=== PATIENT | female | born 2000 | race Caucasian/White ===

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

== ENCOUNTER 2020-02-24 15:02 | Emergency (ER) | payer OTHER, SELFPAY ==
[2020-02-24] VITALS (19 sets, daily range): BP systolic 76–121; BP diastolic 47–82; PULSE 51–102; RESP 4–24; TEMP 36.7–36.9; O2SAT 94–100
[2020-02-24] MEDS: Dexamethasone 10 MG/ML VIAL PO (15:14)
--- NOTE | 2020-02-24 15:16 | ED.GENADUL_ITS ---
Discharge Plan Disposition Patient Disposition: HOME Condition: Stable Discharge Details Chief Complaint: SOB Clinical Impression: Back pain, Asthma exacerbation, Cough Primary Care Provider: Shaw Moran ED Provider: Steven Drummond Home Meds and New Rx's Prescriptions: New prednisone 20 mg tablet 60 mg PO DAILY 5 Days Qty: 15 RF: 0 No Action (DME) Aerovent Plus spacer See Dose Instructions .ROUTE .MEDSUPPLY Qty: 1 RF: 1 Flovent HFA 110 mcg/actuation HFA aerosol inhaler 2 puff IH BID RF: 0 levonorgestrel-ethinyl estrad [Aubra] 0.1-20 mg-mcg tablet 1 tab PO DAILY Qty: 28 RF: 1 albuterol sulfate 90 mcg/actuation HFA aerosol inhaler 2 puff IH Q4H PRN (Reason: shortness of breath or wheezing) Qty: 18 RF: 1 lorazepam 0.5 MG tablet 0.5 mg PO Q6H PRN Qty: 6 RF: 0 ibuprofen [IBU-200] 200 mg Tablet 600 mg PO QID PRNRF: 0 Discharge Instructions Instructions: Asthma (ED), Back Pain (ED), Acute Cough (ED) Additional Instructions: Continue taking your At Home medications as directed and add on prednisone as directed. I have set you up for COVID testing on Wednesday, they will be contacting you for an exact time. Please watch for new or worsening symptoms and return to the ER for any concerns. I do recommend reaching out to your primary care provider on Wednesday for prompt outpatient reevaluation Stand Alone Forms: POSITIVE COVID-19/TO BE TESTED Discharge Data Discharge Date/Time-TO BE ENTERED AT DEPARTURE: 02/24/20 17:17 Medical Decision Making <Alyce Miller - Last Filed: 02/25/20 08:43> 19-year-old female with a history of asthma and anxiety presents with increased shortness of breath x3 days. Per EMS initial presentation patient was satting 90% on room air. Patient received 1 DuoNeb by EMS prior to arrival and 1 puff of her out handheld albuterol inhaler. Per EMS patient was very wheezy bi laterally prior to neb. Upon arrival she has improved somewhat. She does still have some upper airway wheezes. She is satting 99% on room air. She denies fever, chills. She also fell down 5 stairs this morning slip and fall no LOC did not hit her head landed on her back. 1 more DuoNeb ordered, 10 mg of dexamethasone p.o., chest x-ray lumbar spine x- ray ordered. Patient continues to sat 98% on room air. Patient walked to the bathroom to provide a urine sample with minimal assistance. Care is to be handed off to oncoming provider APOLINAR Luis pending patient's labs, x-ray results and reevaluation. At this time expected disposition is discharge home pending improvement in asthma exacerbation. <APOLINAR Devi - Last Filed: 02/24/20 17:07> I assumed care of the patient at shift change pending laboratory values, chest x-ray, lumbar spine x-ray, reevaluation. Upon evaluation patient is resting comfortably, speaking in full sentences and reports feeling significantly improved when compared to her initial presentation. She denies any wheezing. She reports a 3-day history of increasing shortness of breath, wheezing, similar to previous asthma exacerbations. On exam she appears well, nontoxic, lungs are clear to auscultation. Heart rate in the 60s. Without pedal edema, calf pain or swelling. O2 sats in the high 90s on room air. Laboratory values are unremarkable. Both lumbar spine and chest x-ray read by virtual radiology as negative. Discussed options with patient. Will provide a burst dose of steroids and I will set her up for COVID testing on Wednesday through our tent system. Upon discharge patient appears well, nontoxic, speaking full sentences, ambulates without difficulty. O2 sats remained in the high 90s on room air. HPI <Alyce Miller - Last Filed: 02/25/20 08:43> General Mode of arrival: EMS . Date/Time Provider Initiated Documentation: 02/24/20 15:04 . Limitations to Documentation: no limitations . Information obtained by: patient and EMS . HPI Narrative: 19-year-old female with a history of asthma and anxiety presents with increased shortness of breath x3 days. Patient received 1 DuoNeb by EMS prior to arrival and 1 puff of her out handheld albuterol inhaler. Per EMS patient was very wheezy bilaterally prior to neb. Upon arrival she has improved somewhat. She does still have some upper airway wheezes. She is satting 99% on room air. She denies fever, chills. She also fell down 5 stairs this morning slip and fall no LOC did not hit her head landed on her back. Related Data Home Medications Medication Instructions Recorded Confirmed lorazepam 0.5 mg PO Q6H PRN #6 tab 08/31/17 02/24/20 inhalational spacing device #1 each 07/14/18 10/12/19 ibuprofen [IBU-200] 600 mg PO QID PRN 10/21/18 02/24/20 fluticasone propionate 110 2 puff IH BID gm 06/05/19 02/24/20 mcg/actuation HFA aerosol inhaler albuterol sulfate 90 mcg/actuation 2 puff IH Q4H PRN #18 gm 10/12/19 02/24/20 aerosol inhaler levonorgestrel-ethinyl estradiol 1 tab PO DAILY #28 tab 10/12/19 02/24/20 0.1 mg-20 mcg tablet prednisone 60 mg PO DAILY 5 Days #15 tab 02/24/20 Previous Rx's Medication Instructions Recorded lorazepam 0.5 mg PO Q6H PRN #6 tab 08/31/17 inhalational spacing device #1 each 07/14/18 albuterol sulfate 90 mcg/actuation 2 puff IH Q4H PRN #18 gm 10/12/19 aerosol inhaler levonorgestrel-ethinyl estradiol 1 tab PO DAILY #28 tab 10/12/19 0.1 mg-20 mcg tablet prednisone 60 mg PO DAILY 5 Days #15 tab 02/24/20 Allergies Allergy/AdvReac Type Severity Reaction Status Date / Time No Known Drug Allergies Allergy Verified 02/24/20 15:03 dustmites Allergy Uncoded 02/24/20 15:03 General Stated Complaint: SOB KEVIN: 2 Review of Systems <Alyce Miller - Last Filed: 02/25/20 08:43> Narrative: Constitutional: Negative for weight loss, alert and oriented, well groomed, normal body habitus, appears anxious HEENT: Denies headaches, blurry vision, nasal discharge, sore throat, trouble s wallowing. Chest: Denies chest pain, palpitations, irregular rhythm, hypertension. Respiratory: Denies hemoptysis. Positive shortness of breath, cough. GI: Denies , nausea, vomiting, diarrhea, constipation. : Denies dysuria, hematuria, rectal bleeding. Musculoskeletal: Reports some right-sided paraspinous tenderness with palpation. Neuro: Denies dizziness, blurry vision, weakness, syncope, headache or facial numbness. Hematologic: Denies easy bruising, intolerance to heat or cold, hair loss. PFSH <Alyce Miller - Last Filed: 02/25/20 08:43> Medical History Asthma GERD (gastroesophageal reflux disease) Panic attack Surgical History [place] teeth extracted (Acute) [place] teeth removed (Acute) Family History Mother Essential hypertension Hyperlipidemia Neoplasm Father Essential hypertension Hyperlipidemia Other Substance abuse Mental disorder Neoplasm Asthma Grandparent Substance abuse Essential hypertension Hyperlipidemia Bleeding disorder Other Gastric ulcer Social History Smoking/Tobacco Use Status: Never Alcohol Intake: never Drug use: Never Substance use type: does not use Adopted: No Caregiver/Support person: No Foster care: No Household members: family Education Level: college Details: Freshman at [employer] Pets and animals: No Fire extinguisher in home: Yes Carbon monox detector in home: Yes Do you feel safe at home: Yes Do you feel safe in your relationship?: Yes Exam <Alyce Miller - Last Filed: 02/25/20 08:43> Narrative Exam Narrative: Constitutional: Alert and oriented x3. Appears stated age. Normal body habitus. Head: Normocephalic, no trauma. Eyes: Pupils PERRLA, Red reflex noted, EOM's intact. Eyelids symmetrical without lesions, discharge, or swelling. ENT: Bilateral TM's WNL, External ear normal to inspection, no mastoid TTP, swelling, or erythema, Nasal turbinates WNL, no nasal discharge. Normal dentition, Posterior pharynx WNL, no exudate. Chest: RRR, Normal S1, S2, distal pulses intact. Resp: Lungs clear to auscultation bilaterally, no rales, or rhonchi. Upper airway inspiratory wheezes, no stridor. Musculoskeletal: Normal gait, 5/5 strength to all four extremities. Right-sided lumbar paraspinous tenderness with palpation. No midline C-spine tenderness. Skin: No suspicious rashes or lesions. Capillary refill less than 2 sec. Neurologic: Cranial nerves II-XII intact. Alert and oriented x 3. DTR's intact. Hematologic/Lymphatic: No ecchymosis, no lymphadenopathy. Course <Alyce Miller - Last Filed: 02/25/20 08:43> Vital Signs Vital signs: Vital Signs Temperature 36.7 C 02/24/20 15:03 Pulse 102 H 02/24/20 15:03 Respiratory Rate 20 02/24/20 15:03 Blood Pressure 121/66 02/24/20 15:03 Pulse Oximetry 100 02/24/20 15:03 Temperature 36.7 C 02/24/20 15:03 Temperature Source Temporal Artery Scan 02/24/20 15:03 Pulse 102 H 02/24/20 15:03 Respiratory Rate 20 02/24/20 15:03 Respiratory Effort 02/24/20 15:09 Blood Pressure 121/66 02/24/20 15:03 Blood Pressure Position Sitting 02/24/20 15:03 Pulse Oximetry 100 02/24/20 15:03 Oxygen Delivery Method Room Air 02/24/20 15:03 Oxygen Flow Rate 0 02/24/20 15:03 Sign Out <Alyce Miller - Last Filed: 02/25/20 08:43> Sign Out Data: Sign Out Comment: Pending respiratory status re-eval and x-ray results. Last updated by Alyce Miller at 02/24/20 15:44
[2020-02-24 15:26] LABS: Abs Immature Grans 0.01 k/cumm (0.0-0.09); Absolute Basophil Count 0.01 k/cumm (0.0-0.2); Absolute Eosinophil Count 0.05 k/cumm (0.0-0.7); Absolute Lymphocyte Count 2.89 k/cumm (1.2-3.4); Absolute Monocyte Count 0.38 k/cumm (0.11-0.7); Absolute Neutrophil Count 1.85 k/cumm (1.2-6.7); Basophils % 0.2; HCT 40.1 % (36.0-46.0); Immature Grans % 0.2 %; Lymphocytes % 55.7; Mean Corp. HGB Concentration 34.9 g/dL (32.0-36.0); Mean Corpuscular Volume 88.7 fL (80-95); Mean Platelet Volume 9.9 fL (8.0-11.0); Monocytes % 7.3; Neutrophils % 35.6; Platelet Count 223 x1000/uL (130-400); RBC 4.52 m/cumm (4.00-5.20); RBC Distribution Width 12.6 % (11.7-14.6); White Blood Cell Count 5.19 k/cumm (4.4-10.8)
[2020-02-24] MEDS: Albuterol/Ipratropium 3 ML UPD VIAL (15:47)
[2020-02-24 16:10] LABS: ALT 23 U/L (14-59); AST 16 U/L (15-37); Albumin 4.5 g/dL (3.4-5.0); Alkaline Phosphatase 81 U/L (46-116); Anion Gap 13.3 mmol/L (3-11); BUN 8 mg/dL (7-18); Bilirubin, Total 0.9 mg/dL (0.2-1.0); CO2 22.7 mmol/L (21.0-32.0); CREATININE 0.92 mg/dL (0.55-1.02); Calcium 9.6 mg/dL (8.5-10.1); Chloride 104 mmol/L (98-107); Glucose 87 mg/dL (74-106); Potassium 3.7 mmol/L (3.5-5.1); Sodium 140 mmol/L (136-145); Total Protein 7.5 g/dL (6.4-8.2)
--- NOTE | 2020-02-24 16:36 | DI.RAD_ITS ---
EXAM: XR CHEST 2V PA LATERAL CLINICAL HISTORY: Asthma exacerbation TECHNIQUE: 2D digital imaging was performed. COMPARISON: CHEST 2 VIEWS PA,LAT from 01/12/2018 FINDINGS: MEDIASTINUM: Normal. HEART: Normal. PULMONARY VASCULATURE: Normal. LUNGS: Clear. PLEURAL SPACE: No pleural effusion or pneumothorax. BONE:Normal. OTHER FINDINGS:Normal. IMPRESSION: No acute pulmonary findings. DATA REPOSITORY: RADIATION DOSE DELIVERED:
--- NOTE | 2020-02-24 16:39 | DI.RAD_ITS ---
EXAM: XR LUMBAR SPINE AP, LAT CLINICAL HISTORY: Fall,. TECHNIQUE: 2D digital imaging was performed. COMPARISON: No exams were available for comparison FINDINGS: BONES: No fracture or destructive lesion. Vertebral bodies are unremarkable. No facet hypertrophy denisha ntified. DISKS: Intervertebral disc spaces are maintained. ALIGNMENT: Lumbar spinal alignment is within normal limits. SOFT TISSUE: Normal. IMPRESSION: Unremarkable radiographs of the lumbar spine. DATA REPOSITORY: RADIATION DOSE DELIVERED:
--- NOTE | 2020-02-24 16:46 | DI.VRAD_ITS ---
PROCEDURE INFORMATION: Exam: XR Lumbosacral Spine, 2 or 3 Views Exam date and time: 02/24/2020 4:33 PM Age: 19 years old Clinical indication: Fall TECHNIQUE: Imaging protocol: XR of the lumbosacral spine, 2 or 3 views. COMPARISON: No relevant prior studies available. FINDINGS: Normal height and alignment of the lumbar vertebral bodies and associated disc spaces without fracture. IMPRESSION: No acute fracture. Dictated and Authenticated by: Nicanor Santamaria MD. Ordering:JACQUELINE Mead MD
--- NOTE | 2020-02-24 16:49 | DI.VRAD_ITS ---
PROCEDURE INFORMATION: Exam: XR Chest, 2 Views Exam date and time: 02/24/2020 4:32 PM Age: 19 years old Clinical indication: Asthma exacerbation TECHNIQUE: Imaging protocol: XR of the chest Views: 2 views. COMPARISON: No relevant prior studies available. FINDINGS: Lungs: No alveolar infiltrate. Pleural space: No pleural fluid collection. No pneumothorax. Heart/Mediastinum: Unremarkable. No cardiomegaly. Bones/joints: No acute fracture. Mild levoscoliosis. IMPRESSION: No acute infiltrate. Dictated and Authenticated by: Nicanor Santamaria MD. Ordering:JACQUELINE Mead MD
== END 2020-02-24 17:17 | disposition home or self-care (01) ==
LOC: ER 17:19
PROVIDERS: Registered Nurse Emergency; Emergency Provider Physician Assistant; PCP Pediatrics
DX: J45.901 Unspecified asthma with (acute) exacerbation (principal); M54.5 Low back pain; W10.8XXA Fall (on) (from) other stairs and steps, initial encounter
CPT/HCPCS: 36415; 80053; 81025; 94640; 99284; 71046; 72100; 83735; 85025; J1100; J7620

== ENCOUNTER 2020-02-26 09:07 | Outpatient (CLI) | payer OTHER, SELFPAY ==
[2020-02-27 18:35] LABS: COVID-19 RT-PCR UVMMC Result Negative (Negative)
== END 2020-02-26 09:27 ==
PROVIDERS: PCP Pediatrics; Visit Provider Physician Assistant
DX: Z11.59 Encounter for screening for other viral diseases (principal)
CPT/HCPCS: U0003

== ENCOUNTER 2021-01-17 16:16 | Outpatient (REF) | payer OTHER, SELFPAY ==
[2021-01-20 14:57] LABS: Chlamydia Result Negative (Negative); GC Result Negative (Negative)
== END 2021-01-17 16:17 | disposition home or self-care (01) ==
LOC: LBN 16:16
PROVIDERS: PCP Pediatrics; Visit Provider Nurse Practitioner Pediatrics
DX: Z11.3 Encounter for screening for infections with a predominantly sexual mode of transmission (principal)
CPT/HCPCS: 87491; 87591

== ENCOUNTER 2021-07-25 13:31 | Outpatient (CLI) | payer OTHER, SELFPAY ==
[2021-07-25 14:36] LABS: D-Dimer 366 ng/mlFEU (<500)
== END 2021-07-25 13:32 | disposition home or self-care (01) ==
LOC: LBO 13:33
PROVIDERS: Visit Provider Nurse Practitioner Family
DX: M79.651 Pain in right thigh (principal)
CPT/HCPCS: 36415; 85379

== ENCOUNTER 2022-05-21 11:14 | Outpatient (REF) | payer OTHER, SELFPAY ==
--- NOTE | 2022-05-21 10:00 | PAPFT_PTH ---
PATIENT: Leigh Jaramillo LOC: [facility] U#:[id number] AGE/SX: 21/F ROOM: RE05/21/[address]: Emily Mejia MD : 2000 BED: DIS: 05/21/2022 SPEC #: [id number] RECD: 05/21/22 13:09 STATUS: DEVAN REQ #: [id number] CELI: 05/21/22 10:[address]: Emily Mejia DEPT: [facility] Cytology RECD BY: Erum Paez ENTERED: 05/21/22 13:10 SP TYPE: PAPFT OTHR DR: Ellyn Pena MD Tissues: 1 - CX/ENDOCX FOR PAP SMEARS Procedures: PAP THIN PREP/UVM Screening Comments: [id number] (CHLAMYDIA/GC)
[2022-05-22 14:57] LABS: Chlamydia Result Negative (Negative); GC Result Negative (Negative)
== END 2022-05-21 11:15 | disposition home or self-care (01) ==
LOC: LBN 11:14
PROVIDERS: Visit Provider Obstetrics & Gynecology
DX: Z12.4 Encounter for screening for malignant neoplasm of cervix (principal); Z11.3 Encounter for screening for infections with a predominantly sexual mode of transmission
CPT/HCPCS: 87491; 87591; 88142

== ENCOUNTER 2022-05-25 04:27 | Outpatient (RCR) | payer OTHER, SELFPAY ==
--- NOTE | 2022-05-25 11:45 | HOLTER_ITS ---
APPROVED REPORT Conclusion This is a 24-hour Holter monitor ordered for tachycardia Predominant rhythm was sinus with an average heart rate of 74. Minimum was 46, maximum 154 There were rare ventricular ectopic beats There was no atrial fibrillation, no supraventricular tachycardia, no high-grade AV block, no pauses greater than 3 seconds There were very rare atrial premature beats The episode labeled supraventricular tachycardia was in fact sinus tachycardia, not a dysrhythmia There were no apparent patient symptoms
== END 2022-06-24 23:59 | disposition home or self-care (01) ==
LOC: RT 04:27
PROVIDERS: Visit Provider Student in an Organized Health Care Education/Training Program
DX: R00.0 Tachycardia, unspecified (principal); R06.02 Shortness of breath; R07.89 Other chest pain
CPT/HCPCS: 93225; 93226

== ENCOUNTER 2022-05-25 04:27 | Outpatient (CLI) | payer OTHER, SELFPAY ==
--- NOTE | 2022-05-25 11:00 | RT.EKG_ITS ---
APPROVED REPORT Exam: Resting ECG Reason for Exam: episodes of sudden onset heart palpitations w/ SOB Patient Location: O HR:56 bpm ECG Measurements Heart Rate 56 AXIS WI 126 P 12 QRSd 96 QRS 55 QT 439 T 57 QTc 424 Conclusion Sinus rhythm...normal P axis, V-rate 50- 99 Normal Electrocardiogram
== END 2022-05-25 04:28 | disposition home or self-care (01) ==
LOC: RT 04:27
PROVIDERS: Visit Provider Student in an Organized Health Care Education/Training Program
DX: R00.0 Tachycardia, unspecified (principal); R06.02 Shortness of breath
CPT/HCPCS: 93005; 93010

== ENCOUNTER 2023-04-13 17:53 | Outpatient (REF) | payer MEDICAID, SELFPAY ==
[2023-04-13 21:09] LABS: Bilirubin Negative (Negative); Blood Negative (Negative); Clarity Clear (Clear); Glucose Negative (Negative); Ketones Negative (Negative); Leukocyte Esterase Trace (Negative); Nitrite Negative (Negative); Urobilinogen 0.2 mg/dL (Up to 0.2); pH 5.5 (5-8)
[2023-04-13 21:34] LABS: Bacteria Few HPF (Negative); C & S Indicated? Yes; Casts Negative LPF (Negative); Crystals Negative HPF (Negative); Epithelial Cells Few HPF (Negative); Mucus Negative (Negative); Other Cells Rare Transitional (Negative); RBC 0-2 HPF (0-2)
== END 2023-04-13 17:54 | disposition home or self-care (01) ==
LOC: LBN 17:53
PROVIDERS: Visit Provider Nurse Practitioner Family
DX: R39.9 Unspecified symptoms and signs involving the genitourinary system (principal)
CPT/HCPCS: 81003; 81015; 87086

== ENCOUNTER 2024-03-09 12:24 | Outpatient (REF) | payer MEDICAID, SELFPAY ==
[2024-03-11 18:10] LABS: GC Result Negative (Negative)
[2024-03-12 12:10] LABS: Chlamydia Result Positive (Negative)
== END 2024-03-09 12:25 | disposition home or self-care (01) ==
LOC: LBN 12:24
PROVIDERS: Visit Provider Advanced Practice Midwife
DX: Z34.90 Encounter for supervision of normal pregnancy, unspecified, unspecified trimester (principal)
CPT/HCPCS: 87491; 87591

== ENCOUNTER → 2024-03-10 01:27 | Outpatient (CLI) | payer MEDICAID, SELFPAY ==
--- NOTE | 2024-03-10 07:00 | DI.US_ITS ---
Exam(s) US OB 1ST TRIMESTER EXAM: US OB 1ST TRIMESTER CLINICAL HISTORY: RLQ PAIN, EARLY .Z34.90. TECHNIQUE: Transabdominal and transvaginal pelvic ultrasound was performed using standard protocol. COMPARISON: No exams were available for comparison FINDINGS: UTERUS: Position: Anteverted. Size: 8.4 long by 3.4 AP by 5.1 transverse cm Endometrium: 1.5 cm. Normal for patient's menstrual status. No gestational sac is seen at this time. Myometrium: Question of a posterior uterine fibroid. Cervix: Unremarkable. OVARIES: Right: 2.9 x 2.4 x 2.9 cm Cyst or mass: No suspicious cystic or solid masses. There is a complex cyst on the right ovary which may represent a corpus luteal cyst. Left: 3.0 x 1.9 x 2.3 cm Cyst or mass: No suspicious cystic or solid masses. DOPPLER: Color: Symmetric and uniform flow to both ovaries. CUL-DE-SAC: Free fluid: None. Other: No suspicious adnexal masses are seen to suggest an ectopic at this time. IMPRESSION: 1. No evidence of an intrauterine gestational sac or adnexal mass sonographically. 2. Complex cyst on the right ovary which may represent a corpus luteal cyst. 3. This may represent a very early . Follow-up with serial beta HCG levels and follow-up ul trasound to document viable . DATA REPOSITORY:
== END ==
PROVIDERS: Visit Provider Advanced Practice Midwife
DX: Z34.91 Encounter for supervision of normal pregnancy, unspecified, first trimester (principal); Z3A.01 Less than 8 weeks gestation of pregnancy
CPT/HCPCS: 76801

== ENCOUNTER 2024-03-10 12:44 | Outpatient (CLI) | payer MEDICAID, SELFPAY ==
[2024-03-10 11:05] LABS: HCG Quant, Pregnancy 456 mIU/mL (1-3)
== END 2024-03-10 12:45 | disposition home or self-care (01) ==
LOC: LBO 12:44
PROVIDERS: Visit Provider Advanced Practice Midwife
DX: N92.6 Irregular menstruation, unspecified (principal); R10.31 Right lower quadrant pain
CPT/HCPCS: 36415; 86850; 86900; 86901; 84702

== ENCOUNTER 2024-03-13 15:48 | Outpatient (CLI) | payer MEDICAID, SELFPAY ==
[2024-03-13 16:29] LABS: HCG Quant, Pregnancy 1350 mIU/mL (1-3)
== END 2024-03-13 15:49 | disposition home or self-care (01) ==
LOC: LBO 15:49
PROVIDERS: Advanced Practice Midwife; Visit Provider Advanced Practice Midwife
DX: Z34.91 Encounter for supervision of normal pregnancy, unspecified, first trimester (principal); R10.2 Pelvic and perineal pain
CPT/HCPCS: 36415; 84702

== ENCOUNTER 2024-03-26 09:24 | Emergency (ER) | payer MEDICAID, SELFPAY ==
[2024-03-26 09:28] VITALS: BP 126/78; PULSE 83; RESP 15; TEMP 37.2; O2SAT 98
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
--- NOTE | 2024-03-26 10:00 | DI.US_ITS ---
Exam(s) US OB 1ST TRIMESTER EXAM: US OB 1ST TRIMESTER CLINICAL HISTORY: positive , vaginal bleeding, ?ectopic - modify order per ED MD. COMPARISON: US US OB 1ST TRIMESTER from 03/10/2024 TECHNIQUE: Transabdominal Transvaginal first trimester obstetrical ultrasound performed. FINDINGS: There is an intrauterine gestational sac present. A yolk sac was visualized. pole is seen victorino suring 4.1 mm. This is consistent with a 6 weeks 1 day gestation. No heart rate is seen at th is time. Pelvic Measurments Uterus: 8.0 x 3.8 x 1.7 cm Rt Ovary: 3.6 x 2.3 x 1.9 cm Lt Ovary: 3.6 x 1.6 x 1.8 cm There is blood flow seen to both ovaries. There is a 1.4 x 1.3 cm complex cyst on the right ovary li jana reflecting a corpus luteal cyst. IMPRESSION: There is a single intrauterine gestation. Based on the crown-rump length the estimated gestational a ge is 6 weeks 1 day. No heart rate is identified at this time. Repeat ultrasound examination is recommended within 1 week to identify heart rate to determine viability. Beta HCG levels ar e also recommended 4 further evaluation. DATA REPOSITORY:
[2024-03-26 10:16] LABS: Abs Immature Grans 0.01 10^3/uL (0.0-0.06); Absolute Basophil Count 0.03 10^3/uL (0.0-0.2); Absolute Eosinophil Count 0.02 10^3/uL (0.0-0.7); Absolute Lymphocyte Count 0.92 10^3/uL (1.2-3.4); Absolute Monocyte Count 0.31 10^3/uL (0.1-0.8); Absolute Neutrophil Count 3.31 10^3/uL (1.2-6.7); Basophils % 0.7 %; Eosinophils % 0.4 %; HCT 38.1 % (36.0-46.0); HGB 13.1 g/dL (11.2-15.7); Immature Grans % 0.2 %; MCHC 34.4 % (32.0-36.0); MCV 90 fL (80-95); Monocytes % 6.7 %; Platelet Count 198 10^3/uL (130-400); RBC 4.22 10^6/uL (3.93-5.22); RDW-SD 42.7 fL
[2024-03-26 10:52] LABS: ALT 28 U/L (14-59); AST 13 U/L (15-37); Albumin 4.2 g/dL (3.4-5.0); Alkaline Phosphatase 57 U/L (46-116); Anion Gap 8.4 mmol/L (3-11); BUN 7 mg/dL (7-18); CO2 27.6 mmol/L (21.0-32.0); CREATININE 0.8 mg/dL (0.55-1.02); Calcium 9.1 mg/dL (8.5-10.1); Chloride 105 mmol/L (98-107); Estimated GFR 106.11 (mL/min/1.73m2); Glucose 93 mg/dL (74-106); Potassium 3.9 mmol/L (3.5-5.1); Sodium 141 mmol/L (136-145); Total Protein 7.3 g/dL (6.4-8.2)
[2024-03-26 10:55] LABS: HCG Quant, Pregnancy 2753 mIU/mL (1-3)
--- NOTE | 2024-03-26 13:32 | DI.VRAD_ITS ---
PROCEDURE INFORMATION: Exam: US First Trimester, Transabdominal Exam date and time: 03/26/2024 11:02 AM Age: 23 years old Clinical indication: Lmp or gestational age (in weeks): Lmp 02/05/2024; Other: Pelvic pain, bleeding and positive test; Other: Pelvic pain and cramping with heavy bleeding; ; Patient HX: Patient has heavy bleeding with low abdomen and pelvic pain and cramping along with right>left adnexa pain and positive test LABS AND CLINICAL REPORTS: Choriogonadotropin in serum (Serum HCG): 2753 mIU/mL Last menstrual period start date: 02/05/2024 Gestational age (Established): 7 w 1 d Estimated due date (Established): 11/11/2024 TECHNIQUE: Imaging protocol: Real-time transabdominal obstetrical ultrasound of the maternal pelvis and a first trimester , less than 14 weeks 0 days, with image documentation. COMPARISON: US OB 1ST TRIMESTER 03/10/2024 7:18 AM FINDINGS: GESTATION: Gestation: Intrauterine gestation. Yolk sac is unremarkable. pole is seen with crown-rump length of 4.1 mm. Embryonic/ heart rate: None detected Extra-embryonic membranes/Placenta: Unremarkable. No subchorionic bleed. Amniotic/Chorionic fluid: Amniotic and extra-amniotic fluid are normal for gestational age. BIOMETRY: Gestational age (AUA): 6 weeks 1 day MATERNAL: Uterus: Uterus measures 8 cm x 3.8 cm x 4.7 cm. Cervix: Unremarkable. Endocervical canal is closed. Right ovary/adnexa: Right ovary measures 3.6 cm x 2.3 cm x 1.9 cm. Complex cyst seen within the right ovary, most likely corpus luteal cyst. Measurements were not obtained. Left ovary/adnexa: Left ovary measures 3.6 cm x 1.6 cm x 1.8 cm. Intraperitoneal space: No intraperitoneal free fluid. IMPRESSION: Intrauterine gestation. pole measures 14.1 mm corresponding to 6 weeks 1 day gestation. Unable to confirm viability as no heart rate is detected. Dictated and Authenticated by: Marin Roman MD. Ordering:AMARJIT Keita MD
[2024-03-26 14:12] VITALS: BP 114/62; PULSE 65; O2SAT 100
== END 2024-03-26 14:24 | disposition home or self-care (01) ==
PROVIDERS: Emergency Provider Emergency Medicine
DX: O20.9 Hemorrhage in early pregnancy, unspecified (principal); Z3A.01 Less than 8 weeks gestation of pregnancy
CPT/HCPCS: 36415; 80053; 86850; 86900; 86901; 99284; 76801; 83735; 84702; 85025

== ENCOUNTER 2024-04-17 14:55 | Outpatient (REF) | payer MEDICAID, SELFPAY ==
[2024-04-19 13:58] LABS: Chlamydia Result Negative (Negative); GC Result Negative (Negative)
== END 2024-04-17 14:56 | disposition home or self-care (01) ==
LOC: LBN 14:55
PROVIDERS: Visit Provider Advanced Practice Midwife
DX: A74.89 Other chlamydial diseases (principal); Z87.59 Personal history of other complications of pregnancy, childbirth and the puerperium
CPT/HCPCS: 87491; 87591

== ENCOUNTER 2024-09-25 18:06 | Outpatient (REF) | payer OTHER, MEDICAID, SELFPAY ==
[2024-09-25 21:42] LABS: Bilirubin Negative (Negative); Blood Negative (Negative); Clarity Clear (Clear); Glucose Negative (Negative); Ketones Negative (Negative); Leukocyte Esterase Negative (Negative); Nitrite Negative (Negative); Specific Gravity 1.025 (1.005-1.025); Urobilinogen 0.2 mg/dL (Up to 0.2)
[2024-09-26 22:56] LABS: HIV-1/2 Ag & Ab Screen Negative (Negative)
[2024-09-26 23:26] LABS: Hepatitis A Antibody IgM Negative (Negative); Hepatitis B Core Antibody Negative (Negative); Hepatitis B surface Ag Negative (Negative); Hepatitis C Ab w Rflx HCV PCR Negative (Negative)
[2024-09-27 12:44] LABS: Chlamydia Result Negative (Negative); GC Result Negative (Negative)
== END 2024-09-25 18:07 | disposition home or self-care (01) ==
LOC: LBN 18:06
PROVIDERS: Visit Provider Physician Assistant
DX: Z20.2 Contact with and (suspected) exposure to infections with a predominantly sexual mode of transmission (principal); R30.0 Dysuria; Z11.3 Encounter for screening for infections with a predominantly sexual mode of transmission; R39.9 Unspecified symptoms and signs involving the genitourinary system; N39.0 Urinary tract infection, site not specified
CPT/HCPCS: 86704; 86709; 86803; 87340; 87389; 87491; 87591; 81003; 87086; 87480; 87510; 87660

== ENCOUNTER 2025-01-10 19:31 | Outpatient (REF) | payer OTHER, MEDICAID, SELFPAY | END 2025-01-10 19:32 | disposition home or self-care (01) | LOC: LBN 19:31 | PROVIDERS: Visit Provider Nurse Practitioner Family | DX: R30.0 Dysuria (principal) | CPT/HCPCS: 87480; 87510; 87660 ==

== ENCOUNTER 2025-02-14 09:59 | Emergency (ER) | payer OTHER, MEDICAID, SELFPAY ==
[2025-02-14] VITALS (10 sets, daily range): BP systolic 101–111; BP diastolic 59–77; PULSE 74–105; RESP 9–21; TEMP 36.3–36.5; O2SAT 96–100
[2025-02-14 10:34] LABS: Abs Immature Grans 0.01 10^3/uL (0.0-0.06); Absolute Basophil Count 0.05 10^3/uL (0.0-0.2); Absolute Eosinophil Count 0.04 10^3/uL (0.0-0.7); Absolute Lymphocyte Count 1.71 10^3/uL (1.2-3.4); Absolute Monocyte Count 0.43 10^3/uL (0.1-0.8); Absolute Neutrophil Count 2.17 10^3/uL (1.2-6.7); Basophils % 1.1 %; Eosinophils % 0.9 %; HCT 40.9 % (36.0-46.0); HGB 13.9 g/dL (11.2-15.7); Immature Grans % 0.2 %; Lymphocytes % 38.8 %; MCH 31.4 pg (27.0-33.0); MCV 93 fL (80-95); MPV 9.8 fL (8.0-11.0); Monocytes % 9.8 %; Neutrophils % 49.2 %; Platelet Count 195 10^3/uL (130-400); RBC 4.42 10^6/uL (3.93-5.22); RDW-SD 41.1 fL; WBC 4.41 10^3/uL (4.4-10.8)
[2025-02-14] MEDS: predniSONE 20 MG TAB 60 MG PO (10:36)
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
[2025-02-14 11:07] LABS: D-Dimer 144 ng/mlFEU (<500)
--- NOTE | 2025-02-14 11:34 | DI.RAD_ITS ---
Exam(s) XR CHEST 2V PA LATERAL EXAM: XR CHEST 2V PA LATERAL CLINICAL HISTORY: Cough, SOB, hx asthma TECHNIQUE: 2D digital imaging was performed of the chest. Two images were obtained. PA and lateral views were obtained. COMPARISON: CR,XR XR CHEST 2V PA LATERAL from 02/24/2020 FINDINGS: MEDIASTINUM: Normal. HEART: Normal. PULMONARY VASCULATURE: Normal. LUNGS: The lungs are hyperexpanded. No focal consolidating infiltrates are seen. PLEURAL SPACE: No pleural effusion or pneumothorax. BONE:Within normal limits for the patient's age. OTHER FINDINGS:Normal. IMPRESSION: Hyperexpanded lungs. No focal consolidating infiltrates. DATA REPOSITORY: RADIATION DOSE DELIVERED:
[2025-02-14 11:36] LABS: ALT 22 U/L (14-59); AST 19 U/L (15-37); Albumin 4.3 g/dL (3.4-5.0); Alkaline Phosphatase 71 U/L (46-116); Anion Gap 16.1 mmol/L (3-11); BUN 7 mg/dL (7-18); Bilirubin, Total 0.5 mg/dL (0.2-1.0); CO2 23.9 mmol/L (21.0-32.0); CREATININE 0.9 mg/dL (0.55-1.02); Calcium 9.6 mg/dL (8.5-10.1); Chloride 105 mmol/L (98-107); Estimated GFR 91.55 (mL/min/1.73m2); Glucose 83 mg/dL (74-106); Magnesium 1.9 mg/dL (1.8-2.4); Potassium 3.5 mmol/L (3.5-5.1); Sodium 145 mmol/L (136-145); Total Protein 7.5 g/dL (6.4-8.2)
== END 2025-02-14 12:32 | disposition home or self-care (01) ==
PROVIDERS: Emergency Provider Emergency Medicine
DX: J45.901 Unspecified asthma with (acute) exacerbation (principal)
CPT/HCPCS: 99284 ×2; 81025; 80053; 71046; 83735; 85025; 85379; J7512

== ENCOUNTER 2025-05-11 09:27 | Outpatient (REF) | payer OTHER, SELFPAY ==
[2025-05-14 11:51] LABS: Chlamydia Result Negative (Negative); GC Result Negative (Negative)
== END 2025-05-11 09:28 | disposition home or self-care (01) ==
LOC: LBN 09:27
PROVIDERS: Visit Provider Advanced Practice Midwife
DX: N89.8 Other specified noninflammatory disorders of vagina (principal)
CPT/HCPCS: 87491; 87591; 87480; 87510; 87660